=== PATIENT | female | born 1995 | race Caucasian/White ===

== ENCOUNTER 2024-04-02 05:22 | Inpatient (IN) | payer BC ==
[2024-04-02] MEDS ORDERED: Oxytocin 30 units/NS 500 ML 500 ML IV SCH (05:35)
[2024-04-02] MEDS ORDERED: Famotidine/PF 20 mg/2ml Vial SLOW IVP PRN (05:35)
[2024-04-02] MEDS ORDERED: Diphenoxylate HCl/Atropine Tablet PO PRN ×2 (05:35)
[2024-04-02] MEDS ORDERED: Bicitra 30 ML UDCUP PO PRN (05:35)
[2024-04-02] MEDS ORDERED: Promethazine HCl 25 MG/ML VIAL IM PRN ×2 (05:35→06:56)
[2024-04-02] MEDS ORDERED: hydrALAZINE 20 MG/ML VIAL SLOW IVP PRN ×2 (05:35→11:39)
[2024-04-02] MEDS ORDERED: Ondansetron PF 4 MG/2 ML Vial IVP PRN ×3 (05:35→06:56)
[2024-04-02] MEDS ORDERED: Carboprost 250 MCG/ML AMP IM PRN (05:35)
[2024-04-02] MEDS ORDERED: Misoprostol 200 MCG TAB PR PRN (05:35)
[2024-04-02] MEDS ORDERED: Methylergonovine 0.2 MG/ML VIAL IM PRN (05:35)
[2024-04-02 05:47] VITALS: BMI 35.5
[2024-04-02 06:14] LABS: Hemoglobin 12.1 g/dL (12.0-15.5); Mean Corpuscular HGB CONC 33.6 g/dL (32.0-36.0); Mean Corpuscular Hemoglobin 28.7 pg (27.0-33.0); Mean Corpuscular Volume 85.5 fl (81.6-98.3); Mean Platelet Volume 9.8 fl (7.4-10.4); Platelet Count 208 10x3/uL (150-450); RBC Distribution Width 14.1 % (11.5-14.5); Red Blood Cell (RBC) Count 4.21 10x6/uL (3.90-5.03); White Blood Cell (WBC) Count 10.4 10x3/uL (3.5-10.5)
[2024-04-02 06:46] LABS: Syphilis Antibody Nonreactive (Nonreactive); Syphilis Antibody Index 0.07 S/CO (<1.00 Non-Reactive)
[2024-04-02 06:48] LABS: HBsAg Index 0.41 S/CO (0-0.99); HIV (1/2) Antibody/Antigen Non-Reactive (NonReactive); HIV 1/2 INDEX 0.12 S/CO (<1.00); Hep B Surf Ag - L&D Non-Reactive S/CO (NonReactive)
[2024-04-02] MEDS ORDERED: diphenhydrAMINE 50 MG/ML VIAL IVP PRN (06:56)
[2024-04-02] MEDS ORDERED: Meperidine HCl/PF 25 MG (1 mL) VIAL SLOW IVP PRN (06:56)
[2024-04-02] MEDS ORDERED: Naloxone HCl 0.4 mg/ml Vial IV PRN (06:56)
[2024-04-02] MEDS ORDERED: fentaNYL 50 mcg/mL 1 mL Vial SLOW IVP PRN (06:56)
[2024-04-02] MEDS ORDERED: Naloxone HCl 0.4 mg/ml Vial IVP PRN ×2 (06:56)
[2024-04-02] MEDS ORDERED: Ketorolac Tromethamine 30 MG (1 mL) VIAL IVP PRN (06:56)
[2024-04-02] MEDS ORDERED: Moisturizing Cream (Eucerin) 113 GM JAR TOP PRN (06:56)
[2024-04-02] MEDS ORDERED: Morphine 4 MG/ML VIAL SLOW IVP PRN (06:56)
[2024-04-02] MEDS ORDERED: Communication Order-Pharmacy FS SCH (07:00)
[2024-04-02] MEDS ORDERED: Ketorolac Tromethamine 30 MG (1 mL) VIAL IVP SCH (07:00)
[2024-04-02] MEDS: CEFAZOLIN 2 GM in Sodium Chloride 0.9% 100 ML IVPB SCH (07:17)
[2024-04-02] MEDS: Lactated Ringer's 1,000 ML IV SCH (07:18)
[2024-04-02] MEDS ORDERED: Bisacodyl 10 MG SUPP PR PRN (11:39)
[2024-04-02] MEDS ORDERED: Simethicone Chewable 80 MG TAB PO PRN (11:39)
[2024-04-02] MEDS: Erythromycin Base 0.5% Oint 1 GM TUBE ONE (12:03)
[2024-04-02] MEDS: Tranexamic Acid 1,000 MG/10 ML VIAL ONE (12:03)
[2024-04-02] MEDS: Phytonadione Neonatal 1 MG/0.5 ML AMP ONE (12:03)
[2024-04-02] MEDS: Ondansetron PF 4 MG/2 ML Vial ONE (12:03)
[2024-04-02] MEDS: Oxytocin 10 UNITS/ML VIAL ONE (12:03)
[2024-04-02] MEDS: Morphine PF 10 MG/10 ML VIAL ONE (12:03)
[2024-04-02] MEDS: Dexamethasone 4 mg/ml Vial ONE (12:03)
[2024-04-02] MEDS: PHENYLEPHRINE-NS 100 MCG/ML 10 ML SYRINGE ONE (12:03)
[2024-04-02] MEDS: Boostrix 0.5 ML (Tdap) VIAL (>/=7 yrs of age) IM ONE (12:04)
[2024-04-02] MEDS: diphenhydrAMINE 25 MG CAP PO PRN (13:21)
[2024-04-02] MEDS: HYDROcodone/Acetaminophen 5/325 mg Tablet PO PRN (21:06)
[2024-04-02] MEDS: Docusate 100 MG CAP PO SCH (21:06)
[2024-04-03 03:27] LABS: Hematocrit 29.3 % (34.9-44.5); Hemoglobin 9.8 g/dL (12.0-15.5); Mean Corpuscular HGB CONC 33.4 g/dL (32.0-36.0); Mean Corpuscular Hemoglobin 29.3 pg (27.0-33.0); Mean Corpuscular Volume 87.5 fl (81.6-98.3); Mean Platelet Volume 9.9 fl (7.4-10.4); Platelet Count 188 10x3/uL (150-450); RBC Distribution Width 14.2 % (11.5-14.5); Red Blood Cell (RBC) Count 3.35 10x6/uL (3.90-5.03); White Blood Cell (WBC) Count 12.6 10x3/uL (3.5-10.5)
[2024-04-03] MEDS: HYDROcodone/Acetaminophen 5/325 mg Tablet PO PRN (07:26)
[2024-04-03] MEDS: Prenatal Vitamin 1 TAB PO SCH (07:26)
[2024-04-03] MEDS: Ibuprofen 800 MG TAB PO SCH (14:12)
[2024-04-04 07:46] VITALS: BP 98/56; TEMP 97.9
== END 2024-04-04 11:05 | disposition home or self-care (01) | DRG 788 ==
LOC: CSHLD 05:22 → CSHPP 11:20
PROVIDERS: ADMIT Obstetrics & Gynecology; ATTEND Obstetrics & Gynecology
PROC: 10D00Z1 Extraction of Products of Conception, Low, Open Approach (ICD-10-PCS; principal; 2024-04-02)
DX: O34.211 Maternal care for low transverse scar from previous cesarean delivery (principal); O99.02 Anemia complicating childbirth; Z3A.39 39 weeks gestation of pregnancy; Z37.0 Single live birth; O90.0 Disruption of cesarean delivery wound; O99.63 Diseases of the digestive system complicating the puerperium; K66.0 Peritoneal adhesions (postprocedural) (postinfection)
CPT/HCPCS: 36415; 85027; 86780; 86850; 86900; 86901; 87340; 87389; J1100; J2274; J2405; J2590; J3490; J7120